=== PATIENT | male | born 1985 | race Caucasian/White ===

== ENCOUNTER 2017-11-28 14:31 | Emergency (ER) | payer MEDICAID ==
[~2017-11-28] VITALS: Ht 165.1 cm; Wt 170.0 kg
[~2017-11-28 14:31] MED LIST: ACET325T14 PO; ACID1TAB7 PO; BUPR-86 PO; CEFA2FRO IV; CHOL500050 PO; CIPR500T3 PO; CYAN10002 IM; ERGO500017 PO; HYDR12.58 PO; HYDR25TA6 PO; IBUP-1223 PO; LACT1CAP24 PO; LISI-167 PO; LISI-170 PO; LOPE2CAP94 PO; LORA1TAB35 PO; METO50TA82 PO; METR500T PO; PRAZ1CAP2 PO; RISP1TAB3 PO; SERT50TA PO; SERT50TA5 PO; SULF1TAB24 PO; ZIPR20CA2 PO
[2017-11-28 14:35] VITALS: BP 172/97
[2017-11-28 15:10] LABS: ALANINE AMINOTRANSFERASE 37 U/L (12-78); ALBUMIN 3.4 g/dL (3.4-5.0); ANION GAP 5 mmol/L (5-15); CALCIUM 8.5 mg/dL (8.5-10.1); CHLORIDE 107 mmol/L (98-107)
[2017-11-28 15:12] LABS: ALKALINE PHOSPHATASE 56 U/L (45-117); BILIRUBIN,TOTAL 0.3 mg/dL (0.2-1.0); CREATININE 0.72 mg/dL (0.7-1.3); TOTAL PROTEIN 7.1 g/dL (6.4-8.2)
[2017-11-28] MEDS ORDERED: ERGO500017 PO (15:12)
[2017-11-28] MEDS ORDERED: LOSA25TA5 PO (15:12)
[2017-11-28 15:13] LABS: ACETAMINOPHEN < 2 mcg/mL (10-30); SALICYLATE LEVEL < 1.7 mg/dL (2.8-20.0)
[2017-11-28 15:15] LABS: AMPHETAMINE SCREEN, URINE Negative (Negative); BARBITURATE SCREEN, URINE Negative (Negative); BENZODIAZEPINE SCREEN, URINE Negative (Negative); CANNABINOID SCREEN, URINE Negative (Negative); COCAINE SCREEN, URINE Negative (Negative); METHADONE SCREEN, URINE Negative (Negative); OPIATE SCREEN, URINE Negative (Negative)
[2017-11-28 15:26] LABS: MD YES; MEAN CORPUSCULAR HGB CONC 32.2 g/dL (33.2-36.2); MEAN CORPUSCULAR VOLUME 80.8 fL (81-97); MEAN PLATELET VOLUME 8.2 fL (7.4-10.4); PLATELET COUNT 280 x10^3/uL (130-400); RED BLOOD COUNT 5.03 x10^6/uL (4.38-5.82)
[2017-11-28 15:46] LABS: ANISOCYTOSIS 1+; BASOS#(MANUAL) 0.07 x10^3/uL (0-0.1); BASOS% (MANUAL) 1 % (0-1); EOS% (MANUAL) 3 % (1-7); HYPOCHROMIA 1+; LYMPH#(MANUAL) 1.84 x10^3/uL (1-3.4); LYMPHS% (MANUAL) 27 % (22-44); MICROCYTOSIS 1+; MONOS#(MANUAL) 0.48 x10^3/uL (0.3-2.7); MONOS% (MANUAL) 7 % (2-9); SEG#(MANUAL) 4.22 x10^3/uL (1.8-6.8); SEGS% (MANUAL) 62 % (42-75)
[2017-11-28 15:47] LABS: <PLATELET ESTIMATE> ADEQUATE; <PLT MORPHOLOGY> NORMAL PLT MORPH
== END 2017-11-28 18:05 | disposition home or self-care (01) ==
LOC: ED 15:57
DX: F32.9 Major depressive disorder, single episode, unspecified (principal); E11.9 Type 2 diabetes mellitus without complications; I10 Essential (primary) hypertension; E66.9 Obesity, unspecified; Z68.44 Body mass index [BMI] 60.0-69.9, adult
CPT/HCPCS: 36415; 80053; 80307; 80329; 85025; 93005; 99285; G0480

== ENCOUNTER 2018-01-02 08:06 | Emergency (ER) | payer MEDICAID ==
[~2018-01-02] VITALS: Ht 165.1 cm; Wt 150.0 kg
[~2018-01-02 08:06] MED LIST changes: +LOSA25TA6 PO
[2018-01-02 08:17] VITALS: BP 143/86
[2018-01-02 08:51] LABS: BASOPHILS # (AUTO) 0.01 x10^3/uL (0-0.1); BASOPHILS % (AUTO) 0 % (0-1); EOSINOPHILS # (AUTO) 0.14 x10^3/uL (0-0.4); EOSINOPHILS % (AUTO) 2 % (1-7); LYMPHOCYTES # (AUTO) 1.28 x10^3/uL (1-3.4); LYMPHOCYTES % (AUTO) 23 % (22-44); MD NO; MEAN CORPUSCULAR HGB CONC 32.9 g/dL (33.2-36.2); MEAN CORPUSCULAR VOLUME 82.1 fL (81-97); MEAN PLATELET VOLUME 7.8 fL (7.4-10.4); MONOCYTES # (AUTO) 0.41 x10^3/uL (0.2-0.8); MONOCYTES % (AUTO) 7 % (2-9); NEUTROPHILS % (AUTO) 67 % (42-75); PLATELET COUNT 277 x10^3/uL (130-400); RED BLOOD COUNT 5.14 x10^6/uL (4.38-5.82); RED CELL DISTRIBUTION WIDTH 16.4 % (9.4-14.8)
[2018-01-02 08:56] LABS: ALBUMIN 3.5 g/dL (3.4-5.0); ANION GAP 6 mmol/L (5-15); CALCIUM 8.6 mg/dL (8.5-10.1); CHLORIDE 108 mmol/L (98-107); CREATININE 0.84 mg/dL (0.7-1.3)
[2018-01-02 08:57] LABS: SALICYLATE LEVEL < 1.7 mg/dL (2.8-20.0)
[2018-01-02 08:58] LABS: ACETAMINOPHEN < 2 mcg/mL (10-30)
== END 2018-01-02 11:35 | disposition home or self-care (01) ==
LOC: ED 08:51
DX: R45.851 Suicidal ideations (principal); F32.9 Major depressive disorder, single episode, unspecified; E11.9 Type 2 diabetes mellitus without complications; F41.1 Generalized anxiety disorder; I10 Essential (primary) hypertension; E66.01 Morbid (severe) obesity due to excess calories; Z68.43 Body mass index [BMI] 50.0-59.9, adult
CPT/HCPCS: 36415; 80048; 80307; 80329; 82040; 85025; 99284; G0480

== ENCOUNTER 2018-03-14 14:30 | Observation (INO) | payer MEDICAID ==
[~2018-03-14] VITALS: Ht 165.1 cm; Wt 175.0 kg
[~2018-03-14 14:30] MED LIST changes: -HYDR12.58 PO; +HYDROCHLOROTH12.5 MG PO
[2018-03-14 15:04] LABS: BASOPHILS # (AUTO) 0.03 x10^3/uL (0-0.1); BASOPHILS % (AUTO) 1 % (0-1); EOSINOPHILS # (AUTO) 0.16 x10^3/uL (0-0.4); EOSINOPHILS % (AUTO) 2 % (1-7); LYMPHOCYTES # (AUTO) 1.72 x10^3/uL (1-3.4); LYMPHOCYTES % (AUTO) 26 % (22-44); MD NO; MEAN CORPUSCULAR HEMOGLOBIN 27.8 pg (27.5-34.5); MEAN CORPUSCULAR HGB CONC 32.9 g/dL (33.2-36.2); MEAN CORPUSCULAR VOLUME 84.6 fL (81-97); MEAN PLATELET VOLUME 7.9 fL (7.4-10.4); MONOCYTES # (AUTO) 0.54 x10^3/uL (0.2-0.8); MONOCYTES % (AUTO) 8 % (2-9); NEUTROPHILS # (AUTO) 4.12 x10^3/uL (1.8-6.8); NEUTROPHILS % (AUTO) 63 % (42-75); PLATELET COUNT 260 x10^3/uL (130-400); RED BLOOD COUNT 5.22 x10^6/uL (4.38-5.82); RED CELL DISTRIBUTION WIDTH 14.6 % (9.4-14.8)
[2018-03-14 15:10] LABS: ALBUMIN 3.7 g/dL (3.4-5.0); ANION GAP 7 mmol/L (5-15); CALCIUM 8.9 mg/dL (8.5-10.1); CHLORIDE 104 mmol/L (98-107)
[2018-03-14 15:13] LABS: ACETAMINOPHEN < 2 mcg/mL (10-30); SALICYLATE LEVEL < 1.7 mg/dL (2.8-20.0)
[2018-03-14 16:35] LABS: AMPHETAMINE SCREEN, URINE Negative (Negative); BARBITURATE SCREEN, URINE Negative (Negative); BENZODIAZEPINE SCREEN, URINE Negative (Negative); CANNABINOID SCREEN, URINE Negative (Negative); COCAINE SCREEN, URINE Negative (Negative); METHADONE SCREEN, URINE Negative (Negative); OPIATE SCREEN, URINE Negative (Negative)
[2018-03-14] MEDS ORDERED: POLYETHYLENE GLYCOL 17 GM PACKET PO PRN (19:30)
[2018-03-14] MEDS ORDERED: ONDANSETRON ODT 4 MG PO PRN (19:30)
[2018-03-14] MEDS ORDERED: LOSARTAN 25MG TABLET PO SCH (19:30)
[2018-03-14] MEDS ORDERED: ACETAMINOPHEN 325 MG TABLET PO PRN (19:30)
[2018-03-14] MEDS ORDERED: TRAZODONE 50MG TABLET PO PRN (19:30)
[2018-03-14] MEDS ORDERED: ERGOCALCIFEROL 50,000 UNIT CAPSULE PO SCH (19:30)
[2018-03-14 19:56] VITALS: BP 155/95
[2018-03-14] MEDS: LOSARTAN MC SCH (20:30)
[2018-03-15] MEDS: LOSARTAN MC SCH ×2 (04:30→07:58)
[2018-03-15 07:51] VITALS: BP 123/73
[2018-03-15] MEDS ORDERED: LOSARTAN 25MG TABLET PO SCH (09:00)
[2018-03-15] MEDS ORDERED: HYDROCHLOROTHIAZIDE 25 MG TABLET PO SCH (09:00)
[2018-03-15] MEDS ORDERED: BUPROPION SR 150 MG TABLET PO SCH (09:00)
== END 2018-03-15 13:20 ==
LOC: ED 15:59 → EDIP 17:18 → 2N 19:55
PROVIDERS: ADMIT Internal Medicine; ATTEND Hospitalist
DX: R45.851 Suicidal ideations (principal); I10 Essential (primary) hypertension; E11.9 Type 2 diabetes mellitus without complications; E66.01 Morbid (severe) obesity due to excess calories; F20.9 Schizophrenia, unspecified; F41.1 Generalized anxiety disorder
CPT/HCPCS: 36415; 80048; 80307; 80329; 82040; 85025; 99284; G0378; G0480

== ENCOUNTER 2019-05-24 02:29 | Emergency (ER) | payer MEDICAID ==
[~2019-05-24] VITALS: Ht 165.1 cm; Wt 147.6 kg
[~2019-05-24 02:29] MED LIST changes: +LOPE-114 PO; -LOPE2CAP94 PO; +LOSA25TA25 PO; -LOSA25TA6 PO; +SERT50TA28 PO; -SERT50TA5 PO
[2019-05-24 02:31] VITALS: BP 153/90
--- NOTE | 2019-05-24 03:06 | NUR ---
PT TO ED WITH C/O DEPRESSION STATES "I NEED A SAFE PLACE". PT STATES "I JUST GOT OUT OF [facility] A COUPLE HOURS AGO AND WALKED HERE". PT ALSO REPORTS CALLING HIS TO PICK HIM UP FROM [facility], SHE DID NOT ANSWER HIS CALL. PT CALM AND COOPERATIVE. RESTING ON GURNEY.
[2019-05-24 03:46] LABS: BASOPHILS # (AUTO) 0.03 x10^3/uL (0-0.1); BASOPHILS % (AUTO) 0 % (0-1); EOSINOPHILS % (AUTO) 2 % (1-7); LYMPHOCYTES # (AUTO) 1.38 x10^3/uL (1-3.4); LYMPHOCYTES % (AUTO) 20 % (22-44); MD NO; MEAN CORPUSCULAR HEMOGLOBIN 29.4 pg (27.5-34.5); MEAN CORPUSCULAR HGB CONC 33.2 g/dL (33.2-36.2); MEAN CORPUSCULAR VOLUME 88.8 fL (81-97); MEAN PLATELET VOLUME 8.1 fL (7.4-10.4); MONOCYTES # (AUTO) 0.56 x10^3/uL (0.2-0.8); MONOCYTES % (AUTO) 8 % (2-9); NEUTROPHILS # (AUTO) 4.83 x10^3/uL (1.8-6.8); NEUTROPHILS % (AUTO) 70 % (42-75); PLATELET COUNT 249 x10^3/uL (130-400); RED BLOOD COUNT 5.08 x10^6/uL (4.38-5.82); RED CELL DISTRIBUTION WIDTH 13.8 % (9.4-14.8)
[2019-05-24 04:00] LABS: ALANINE AMINOTRANSFERASE 28 U/L (12-78); ANION GAP 8 mmol/L (5-15); CALCIUM 9.1 mg/dL (8.5-10.1); CHLORIDE 105 mmol/L (98-107); CREATININE 1.01 mg/dL (0.7-1.3)
[2019-05-24 04:02] LABS: ALKALINE PHOSPHATASE 57 U/L (45-117); BILIRUBIN,TOTAL 0.7 mg/dL (0.2-1.0); TOTAL PROTEIN 7.8 g/dL (6.4-8.2)
[2019-05-24 04:03] LABS: SALICYLATE LEVEL < 1.7 mg/dL (2.8-20.0)
[2019-05-24 04:13] LABS: AMPHETAMINE SCREEN, URINE Positive (Negative); BARBITURATE SCREEN, URINE Negative (Negative); BENZODIAZEPINE SCREEN, URINE Negative (Negative); CANNABINOID SCREEN, URINE Negative (Negative); COCAINE SCREEN, URINE Negative (Negative); METHADONE SCREEN, URINE Negative (Negative); OPIATE SCREEN, URINE Negative (Negative)
--- NOTE | 2019-05-24 04:17 | NUR ---
PT RESTING ON GURNEY WITH EYES CLOSED. RESPIRATIONS EVEN AND NONLABORED. PROVIDED WARM BLANKET FOR COMFORT. SITTER IN HALLWAY WITHIN LINE OF SIGHT. ROOM SECURED.
--- NOTE | 2019-05-24 06:24 | NUR ---
REPORT GIVEN TO TELEPSYCH.
--- NOTE | 2019-05-24 07:01 | NUR ---
REPORT RECEIVED FROM KAREY. PT RESTING ON [facility]. [place]. SITTER AT BEDSIDE. ROOM SECURE. TELEPSYCH FINISHED AT THIS TIME.
--- NOTE | 2019-05-24 07:05 | NUR ---
PER SOC OKAY TO DC PT SHE STATES HE IS MALINGERING AND DOES NOT NEED TO BE ON LEGAL HOLD. WILL INFORM .
--- NOTE | 2019-05-24 07:16 | NUR ---
PT STATES HE WAS TOLD BY EMMETT MAGALLANES THAT HE WILL BE SEEN BY STOCK WORKER AND DELIVERER. THIS RN SPOKE WITH PT ABOUT WHAT SPECIFIC NEEDS HE HAS- PT STATES HE NEEDS TO GET [facility] OF HIS . THIS RN CALLED PT'S ([phone]) AND THERE WAS NO ANSWER. MESSAGE LEFT.
--- NOTE | 2019-05-24 07:23 | NUR ---
PT STATES HE HAS INFORMATION TO GET TO [facility] BUT HE NEEDS HELP GETTING THERE. PT GIVEN TAXI VOUCHER, STATES HE IS READY TO GO AND DOES NOT WANT TO WAIT FOR [employer].
== END 2019-05-24 07:25 | disposition home or self-care (01) ==
LOC: ED 03:41
DX: R45.851 Suicidal ideations (principal); F32.9 Major depressive disorder, single episode, unspecified; Z72.9 Problem related to lifestyle, unspecified; R00.0 Tachycardia, unspecified; F15.10 Other stimulant abuse, uncomplicated; E11.9 Type 2 diabetes mellitus without complications; F41.9 Anxiety disorder, unspecified; I10 Essential (primary) hypertension
CPT/HCPCS: 36415; 80053; 80307; 85025; 99283